=== PATIENT | female | born 1985 | race Caucasian/White ===

== ENCOUNTER 2016-06-28 12:16 | Day surgery (SDC) | payer BC ==
[~2016-06-28 12:16] MED LIST: BUPIVACAINE 0.25% 30 ML SDV ONE; BUPIVACAINE 0.5% 30 ML SDV ONE; SKIN ADHESIVE (DERMABOND) 1 EACH TP ONE
[2016-06-28] MEDS ORDERED: LIDOCAINE 1% 2 ML INJ ONE (12:46)
[2016-06-28] MEDS ORDERED: LR 1,000 ML IV SCH (13:00)
[2016-06-28] MEDS ORDERED: ceFAZolin 2 GM/DEXTROSE 100 ML IV ONE (13:00)
[2016-06-28] MEDS ORDERED: MIDAZOLAM 2 MG/2 ML VIAL ONE (14:42)
[2016-06-28] MEDS ORDERED: fentaNYL 250 MCG/5 ML INJ ONE (14:50)
[2016-06-28] MEDS ORDERED: BUPIVACAINE/EPI 0.5% 30 ML SDV ONE (14:50)
[2016-06-28] MEDS ORDERED: PROPOFOL 200 MG/20 ML VIAL ONE (14:50)
[2016-06-28] MEDS ORDERED: DEXAMETHASONE 4 MG/ML VIAL ONE (14:50)
[2016-06-28] MEDS ORDERED: LIDOCAINE 2% 5 ML SDV ONE (14:50)
[2016-06-28] MEDS ORDERED: ONDANSETRON 4 MG/2 ML VIAL ONE (14:50)
--- NOTE | 2016-06-28 16:20 | GOP ---
[f rep st] OPERATIVE REPORT DATE OF OPERATION: 06/28/2016 SURGEON: Gerald Monroe MD JIGMAN: None. ANESTHESIA: General. PREOPERATIVE DIAGNOSIS: Bladder outlet obstruction. POSTOPERATIVE DIAGNOSIS: Bladder outlet obstruction. PROCEDURE PERFORMED: Revision of transobturator sling. FINDINGS: SPECIMENS: None. ESTIMATED BLOOD LOSS: Scant. DESCRIPTION OF PROCEDURE: The patient was taken to the operating room, where she was identified. G eneral anesthesia was administered and found to be adequate. She was placed in the lithotomy positi on and prepared and draped in normal sterile fashion. A Loco catheter was placed in her bladder. Her midurethral incision sutures were excised. The incision was opened. A right-angle clamp was pl aced between the urethra and the sling. A second right-angle clamp was used to grasp the left aspec t of the sling near the obturator internus muscle. Very gentle traction was applied until the sling loosened approximately 2 mm. The sling was then examined, and an adequate midurethral gap appeared to be present. The area was irrigated with sterile saline, and the incision closed with 2-0 Vicryl suture. Anesthesia was reversed, and the patient taken to the PACU awake, in stable condition. COMPLICATIONS: None. DISPOSITION: Patient stable to PACU. /[id number]/MODL
== END 2016-06-28 18:20 | disposition home or self-care (01) ==
LOC: FSGY 12:16
PROVIDERS: ATTEND Obstetrics & Gynecology
PROC: 0TW Urinary System, Revision (ICD-10-PCS; principal; 2016-06-28 14:15)
DX: N32.0 Bladder-neck obstruction (principal); N39.3 Stress incontinence (female) (male); N94.6 Dysmenorrhea, unspecified; N92.0 Excessive and frequent menstruation with regular cycle
CPT/HCPCS: J0690; J1100; J2250; J2405; J2704; J3010